=== PATIENT | male | born 1945 | race Caucasian/White ===

== ENCOUNTER → 2023-07-11 08:06 | Outpatient (REF) | payer OTHER, SELFPAY | LOC: RAD 08:06 | PROVIDERS: ATTENDING PHYSICIAN Surgery; FAMILY PHYSICIAN Family Medicine | DX: K59.02 Outlet dysfunction constipation (principal) | CPT/HCPCS: 74018 ==

== ENCOUNTER → 2024-01-26 15:17 | Outpatient (REF) | payer OTHER, SELFPAY | LOC: RAD 15:17 | PROVIDERS: ATTENDING PHYSICIAN Family Medicine | DX: R10.9 Unspecified abdominal pain (principal) | CPT/HCPCS: 74019 ==

== ENCOUNTER → 2025-01-09 18:06 | Outpatient (REF) | payer OTHER, SELFPAY | LOC: RAD 18:06 | PROVIDERS: ATTENDING PHYSICIAN Nurse Practitioner Family; FAMILY PHYSICIAN Family Medicine | DX: R10.9 Unspecified abdominal pain (principal) | CPT/HCPCS: 74019 ==